=== PATIENT | female | born 1975 | race Caucasian/White ===

== ENCOUNTER 2022-01-03 12:11 | Emergency (ER) | payer BC ==
[2022-01-03 13:43] LABS: HEMOGLOBIN 12.3 gm/dl (12.3-15.3); RED BLOOD COUNT 4.04 M/UL (4.00-5.10); WHITE BLOOD COUNT 9.3 K/UL (4.5-11.0)
[2022-01-03 14:00] LABS: BUN/CREATININE RATIO 13 (0-10)
== END 2022-01-03 15:48 | disposition home or self-care (01) ==
LOC: ER1 12:11
PROVIDERS: Emergency Medicine
DX: R10.9 Unspecified abdominal pain (principal); Z87.442 Personal history of urinary calculi
CPT/HCPCS: 80048; 81001; 84703; 85025; 99284